=== PATIENT | female | born 1945 | race Caucasian/White ===

== ENCOUNTER → 2024-09-10 | Outpatient (CLI) | payer MEDICARE, SELFPAY ==
[2024-09-10 12:01] LABS: Basophils % (Auto) 1 % (0-2.5); Eosinophils # (Auto) 0.3 Thou/mm3 (0.0-0.5); Eosinophils % (Auto) 3 % (0-10); Hematocrit 38.8 % (36.0-46.0); Hemoglobin 12.8 g/dL (12.0-16.0); Immature Granulocytes % (Auto) 1 % (0-0); Immature Granulocytes Auto 0.06 Thou/mm3 (0.00-0.00); Lymphocytes # (Auto) 3.8 Thou/mm3 (1.0-4.8); Lymphocytes % (Auto) 48 % (10-50); Mean Corpuscular Hemoglobin 29.8 pg (25.0-35.0); Mean Corpuscular Volume 90 fL (80-100); Monocytes # (Auto) 0.8 Thou/mm3 (0.0-0.8); Monocytes % (Auto) 10 % (0-12); Neutrophils % (Auto) 38 % (37-80); Nucleated Red Blood Cell % 0 /100 WBC (0); Platelet Count 231 Thou/mm3 (140-440); RDW Standard Deviation 46.8 fL (36.4-46.3); White Blood Count 8.1 Thou/mm3 (3.6-11.0)
[2024-09-10 12:22] LABS: Alanine Aminotransferase 27 U/L (10-49); Albumin, Serum 4.5 gm/dL (3.4-4.8); Albumin/Globulin Ratio 1.8 (1.2-2.2); Alkaline Phosphatase 41 U/L (46-116); Anion Gap 7 (7-16); Aspartate Amino Transferase 28 U/L (0-34); BUN/Creatinine Ratio 15 Ratio (12-20); Bilirubin,Total 0.5 mg/dL (0.3-1.2); Blood Urea Nitrogen 16 mg/dL (9-23); Calcium 9.9 mg/dL (8.3-10.6); Calcium (Corrected) 9.9 mg/dL (8.5-10.1); Carbon Dioxide 27.3 mMol/L (20.0-31.0); Chloride 102 mMol/L (98-107); Creatinine (Component) 1.1 mg/dL (0.6-1.3); Globulin 2.5 gm/dL (2.3-3.5); Glucose 156 mg/dL (74-106); Osmolality,Calculated 276 (275-295); Potassium 4.1 mMol/L (3.4-5.1); Sodium 136 mMol/L (136-145); eGFR 51 See Note
[2024-09-26 03:06] LABS: Immunoglobulin A 92 mg/dL (70-320); Immunoglobulin G 695 mg/dL (600-1540)
[2024-09-26 07:10] LABS: Immunoglobulin M 997 mg/dL (50-300)
== END | disposition home or self-care (01) ==
LOC: SCTO 11:11
PROVIDERS: PCP Family Medicine; Referring Provider Internal Medicine Hematology & Oncology; Visit Provider Internal Medicine Hematology & Oncology
DX: D72.820 Lymphocytosis (symptomatic) (principal)
CPT/HCPCS: 36415; 80053; 82784; 85025

== ENCOUNTER → 2024-09-11 | Outpatient (CLI) | payer MEDICARE, SELFPAY ==
[2024-09-11 10:16] LABS: Collection Type, Urine Clean Catch
[2024-09-11 10:29] LABS: Basophils # (Auto) 0.1 Thou/mm3 (0.0-0.2); Basophils % (Auto) 1 % (0-2.5); Eosinophils # (Auto) 0.2 Thou/mm3 (0.0-0.5); Eosinophils % (Auto) 2 % (0-10); Hematocrit 38.6 % (36.0-46.0); Hemoglobin 12.9 g/dL (12.0-16.0); Immature Granulocytes % (Auto) 1 % (0-0); Immature Granulocytes Auto 0.05 Thou/mm3 (0.00-0.00); Lymphocytes # (Auto) 4.1 Thou/mm3 (1.0-4.8); Lymphocytes % (Auto) 51 % (10-50); Mean Corpuscular HGB Conc 33.4 g/dl (31.0-37.0); Mean Corpuscular Hemoglobin 29.7 pg (25.0-35.0); Mean Corpuscular Volume 89 fL (80-100); Monocytes # (Auto) 0.9 Thou/mm3 (0.0-0.8); Monocytes % (Auto) 12 % (0-12); Neutrophils # (Auto) 2.7 Thou/mm3 (1.8-7.7); Neutrophils % (Auto) 34 % (37-80); Nucleated Red Blood Cell % 0 /100 WBC (0); Platelet Count 237 Thou/mm3 (140-440); RDW Standard Deviation 45.9 fL (36.4-46.3); Red Blood Count 4.34 Miln/mm3 (4.00-5.20); White Blood Count 8.1 Thou/mm3 (3.6-11.0)
[2024-09-11 10:42] LABS: Glucose Estimated Average 163 mg/dL (80-131); Hemoglobin A1C 7.3 % Hgb (4.8-6.0)
[2024-09-11 10:46] LABS: Bacteria,Urine Rare; Bilirubin,Urine Negative (Negative); Blood,Urine Negative (Negative); Clarity,Urine Clear (Clear/Hazy); Color,Urine Yellow (Lt Yel-Yel); Glucose, Urine Negative (Negative); Hyaline Casts,Urine < 1 /hpf (0-1); Ketones,Urine Negative (Negative); Leukocyte Esterase,Urine Positive (Negative); Nitrite,Urine Negative (Negative); Protein,Urine 1+ (Neg - Trace); RBC,Urine 10 /hpf (0-3); Specific Gravity,Urine 1.027 (1.001-1.035); Squamous Epithelial Cell,Urine 1 /hpf (0-5); Urobilinogen,Urine Negative mg/dL (0.0-1.0); WBC,Urine 28 /hpf (0-5)
[2024-09-11 10:50] LABS: Alanine Aminotransferase 27 U/L (10-49); Albumin, Serum 4.5 gm/dL (3.4-4.8); Albumin/Globulin Ratio 1.7 (1.2-2.2); Alkaline Phosphatase 40 U/L (46-116); Anion Gap 6 (7-16); Aspartate Amino Transferase 28 U/L (0-34); BUN/Creatinine Ratio 12 Ratio (12-20); Bilirubin,Total 0.5 mg/dL (0.3-1.2); Blood Urea Nitrogen 14 mg/dL (9-23); Calcium 9.6 mg/dL (8.3-10.6); Calcium (Corrected) 9.6 mg/dL (8.5-10.1); Carbon Dioxide 27.8 mMol/L (20.0-31.0); Chloride 104 mMol/L (98-107); Cholesterol 121 mg/dL (132-200); Creatinine (Component) 1.2 mg/dL (0.6-1.3); Globulin 2.6 gm/dL (2.3-3.5); Glucose 185 mg/dL (74-106); HDL Cholesterol 61 mg/dL (40-60); LDL Cholesterol,Calculated 48 mg/dL (0-130); Osmolality,Calculated 281 (275-295); Sodium 138 mMol/L (136-145); Thyroid Stimulating Hormone 2.55 uIU/mL (0.55-4.78); Total Protein 7.1 gm/dL (5.7-8.2); Triglycerides 58 mg/dL (30-150); eGFR 46 See Note
[2024-09-11 10:52] LABS: Vitamin B12 331 pg/mL (211-911); Vitamin D 25 Hydroxy Total 48.1 ng/mL (7.3-40.2)
[2024-09-11 11:08] LABS: Culture Indicated,Urine Yes
== END | disposition home or self-care (01) ==
LOC: COPL 09:27
PROVIDERS: PCP Family Medicine; Referring Provider Physician Assistant; Visit Provider Physician Assistant
DX: E11.9 Type 2 diabetes mellitus without complications (principal); E55.9 Vitamin D deficiency, unspecified
CPT/HCPCS: 36415; 80053; 80061; 81001; 82306; 82607; 83036; 84443; 85025; 87086

== ENCOUNTER 2024-10-02 10:22 | Outpatient (RCR) | payer MEDICARE, SELFPAY | END 2024-10-23 23:59 | disposition home or self-care (01) | LOC: SCTC 10:22 | PROVIDERS: PCP Physician Assistant; Referring Provider Physician Assistant; Visit Provider Nurse Practitioner Family | DX: C88.00 Waldenstrom macroglobulinemia not having achieved remission (principal) | CPT/HCPCS: 99212; G0463 ==

== ENCOUNTER → 2024-10-03 | Outpatient (CLI) | payer MEDICARE, SELFPAY ==
--- NOTE | 2024-10-03 15:30 | XR_ITS ---
Examination: CT chest, without intravenous contrast. Sagittal and coronal 2-D reconstructions. Exam date and time: October 03, 2024 1548 hours Comparison January 04, 2024 INDICATIONS: History lymphocytosis diagnosis 6 months ago, bilateral pulmonary nodules on CT chest January 04, 2024 and October 05, 2023 CTDI:vol (mGy) 7.02 DLP: (mGycm) 256 Technique: Multiple 3.0 mm axial sections of the chest to been obtained. Bone and lung density settings are obtained. Sagittal and coronal 2-D reconstructions have been obtained. Low dose protocols were performed. One or more of the following dose reduction techniques were used; automated exposure control, adjustment of the mA and/or KV according to patient size, use of iterative reconstruction technique. Findings: No thoracic aortic aneurysm dilatation Pulmonary artery segments are not enlarged No paratracheal tracheobronchial or bronchopulmonary adenopathy Stable bilateral pulmonary nodules Minor atelectasis or scarring in the right middle lobe Fatty infiltration throughout the liver Significant hepatomegaly incompletely visualized AP dimension spleen 11 cm No pancreatic mass Mild bilateral renal parenchymal scar formation Significant osteopenia IMPRESSION: No mediastinal lymphadenopathy Stable subcentimeter bilateral pulmonary nodules Significant hepatomegaly incompletely visualized
== END | disposition home or self-care (01) ==
PROVIDERS: PCP Family Medicine; Referring Provider Internal Medicine Hematology & Oncology; Visit Provider Internal Medicine Hematology & Oncology
DX: R91.8 Other nonspecific abnormal finding of lung field (principal); R16.0 Hepatomegaly, not elsewhere classified
CPT/HCPCS: 71250

== ENCOUNTER → 2024-12-04 | Outpatient (CLI) | payer MEDICARE, SELFPAY ==
[2024-12-04 17:39] LABS: Basophils # (Auto) 0.1 Thou/mm3 (0.0-0.2); Basophils % (Auto) 1 % (0-2.5); Eosinophils # (Auto) 0.2 Thou/mm3 (0.0-0.5); Eosinophils % (Auto) 2 % (0-10); Hematocrit 38.8 % (36.0-46.0); Hemoglobin 12.8 g/dL (12.0-16.0); Immature Granulocytes % (Auto) 0 % (0-0); Immature Granulocytes Auto 0.04 Thou/mm3 (0.00-0.00); Lymphocytes # (Auto) 4.3 Thou/mm3 (1.0-4.8); Lymphocytes % (Auto) 44 % (10-50); Mean Corpuscular Hemoglobin 29.2 pg (25.0-35.0); Mean Corpuscular Volume 89 fL (80-100); Monocytes # (Auto) 1.1 Thou/mm3 (0.0-0.8); Monocytes % (Auto) 11 % (0-12); Neutrophils # (Auto) 4.1 Thou/mm3 (1.8-7.7); Neutrophils % (Auto) 42 % (37-80); Nucleated Red Blood Cell % 0 /100 WBC (0); Platelet Count 225 Thou/mm3 (140-440); RDW Standard Deviation 45.1 fL (36.4-46.3); Red Blood Count 4.38 Miln/mm3 (4.00-5.20); White Blood Count 9.8 Thou/mm3 (3.6-11.0)
[2024-12-04 17:58] LABS: Alanine Aminotransferase 31 U/L (10-49); Albumin, Serum 4.4 gm/dL (3.4-4.8); Albumin/Globulin Ratio 1.6 (1.2-2.2); Alkaline Phosphatase 52 U/L (46-116); Anion Gap 6 (7-16); Aspartate Amino Transferase 28 U/L (0-34); BUN/Creatinine Ratio 13 Ratio (12-20); Bilirubin,Total 0.3 mg/dL (0.3-1.2); Blood Urea Nitrogen 15 mg/dL (9-23); Calcium 9.7 mg/dL (8.3-10.6); Calcium (Corrected) 9.7 mg/dL (8.5-10.1); Carbon Dioxide 26.7 mMol/L (20.0-31.0); Chloride 107 mMol/L (98-107); Creatinine (Component) 1.2 mg/dL (0.6-1.3); Globulin 2.7 gm/dL (2.3-3.5); Glucose 129 mg/dL (74-106); Osmolality,Calculated 282 (275-295); Potassium 4.1 mMol/L (3.4-5.1); Sodium 140 mMol/L (136-145); Total Protein 7.1 gm/dL (5.7-8.2); eGFR 46 See Note
[2024-12-10 19:48] LABS: Abnormal protein band 1 0.6 g/dL (NONE DETECTED); Albumin 4.1 g/dL (3.8-4.8); Alpha-1-Globulin 0.3 g/dL (0.2-0.3); Alpha-2-Globulin 0.8 g/dL (0.5-0.9); Beta-1-Globulin 0.5 g/dL (0.4-0.6); Beta-2-globulin 0.3 g/dL (0.2-0.5); Gamma Globulin 1.2 g/dL (0.8-1.7); Kappa Light Chain, Free 388.5 mg/L (3.3-19.4); Lambda Light Chain, Free 12.3 mg/L (5.7-26.3)
[2024-12-11 07:06] LABS: Kappa/Lambda, Free Ratio 31.59 (0.26-1.65); Protein, total, serum 7.2 g/dL (6.1-8.1)
== END | disposition home or self-care (01) ==
LOC: SCTO 16:15
PROVIDERS: PCP Family Medicine; Referring Provider Internal Medicine Hematology & Oncology; Visit Provider Internal Medicine Hematology & Oncology
DX: D72.820 Lymphocytosis (symptomatic) (principal)
CPT/HCPCS: 36415; 80053; 82570; 83521; 84155; 84156; 84165; 84166; 85025; 86334

== ENCOUNTER → 2024-12-06 | Outpatient (CLI) | payer MEDICARE, SELFPAY ==
[2024-12-06 12:10] LABS: Protein Total, Urine Volume 1240 mL/24hr (600-1800)
[2024-12-06 12:26] LABS: Protein Total, 24 hr Urine 74 mg/24hr (<149); Protein Total, Urine < 6 mg/dL (1-14)
== END | disposition home or self-care (01) ==
LOC: SLDO 11:05
PROVIDERS: Referring Provider Internal Medicine Hematology & Oncology; Visit Provider Internal Medicine Hematology & Oncology
DX: D72.820 Lymphocytosis (symptomatic) (principal)
CPT/HCPCS: 84156

== ENCOUNTER 2024-12-17 10:28 | Outpatient (RCR) | payer MEDICARE, SELFPAY ==
--- NOTE | 2024-12-23 13:44 | CTCFLWUP_ITS ---
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 Scheduled for CT chest tomorrow. Patient denies any concerns or complaints. Patient remains asymptomatic. ONCOLOGY HISTORY: DIAGNOSIS: Santiago Isa's macroglobulinemia, asymptomatic. DATE OF DIAGNOSIS: STAGE/TNM: Asymptomatic TREATMENT HISTORY: Care?Plan Start?Date Cycle Day Intent HISTORY OF PRESENT ILLNESS: Cydney Clay is a 79-year-old ENG speaking female with history of mild COPD, actinic keratosis is referred to hematology clinic for lymphocytosis. 12/05/2018: WBC 5.9, absolute lymphocyte count 2.6, hemoglobin 13.3, MCV 97, platelets 198,000. 04/24/2020: WBC 5.7, absolute lymphocyte count 2.7, hemoglobin 13.5, MCV 96, platelets 190,000. 07/22/2021: WBC 6.6, absolute lymphocyte count 3.8, hemoglobin 13.3, MCV 95, platelets 186,000. 04/14/2022: WBC 12.4, absolute lymphocyte count 8.6, hemoglobin 13.6, MCV 94, platelets 264,000. 04/14/2022: Peripheral smear reviewed by pathologist? 05/12/2022: Abdominal ultrasound? 07/30/2022: Flow cytometry of the peripheral blood? 09/14/2022: Of the abdomen and pelvis with IV contrast in [place] which showed small enlarged gastrohepatic of the chest abdomen and pelvis with IV contrast? 09/23/2022: 11/08/2022: IgM 761 (50?300) [place] light chains 193.3 (3.3?19.4), kappa?lambda free light chain ratio 11.24. WBC 9.0, absolute lymphocyte count 5.2, hemoglobin 13.4, MCV 90, platelets 240,000. 12/08/2022 IgM 738, kappa free light chain 213.0, kappa/lambda free light chain ratio 12.60, WBC 8.3, absolute lymphocyte count 4.5, hemoglobin 12.3, platelets 267,000. 09/20/2023: Hemoglobin 12.2, MCV 92, WBC 6.5, ANC 2.6, platelets 178,000, creatinine 1.0, calcium 9.6, globulin is 2.7. 01/03/2024: Ms. Clay had CT scan of the abdomen and pelvis with contrast done to evaluate the cause for hematuria for which she is being followed by urologist in [place] 02/07/2024: PET/CT scan OTHER MEDICAL HISTORY/CONDITIONS: allergies???heart?murmur?copd???covid hystrectomy opphrectomy catract/retina surg 2007 History of mild COPD. History of actinic keratosis FAMILY HISTORY: Father:?colon?ca SOCIAL HISTORY: Occupational?History:?retired Education?Level:?Attended College, did not graduate Marital?Status:? Tobacco?Pack?per?Day:?0 Tobacco?Use?Years:?1 Tobacco?Use:?quit?50?yrs ETOH?Use:?no Drug?Note:?denies Social?History?Note:?lived?alone HEALTH CLINICIAN HISTORY: Menarche?-?Age:?16 Menopause:?1979 :?2 Live?Births:?2 Age?1st?:?21 MEDICATIONS: 1. albuterol sulfate - 90 mcg/actuation As needed 2. caprylic/capric triglyceride - As directed 3. Estraderm - Medications Last Reconciled by Patsy Mann MD on 12/17/2024 ALLERGIES: Doxycycline calcium; amoxicillin-pot clavulanate REVIEW OF SYSTEMS: A complete 14-point review of systems was performed and is negative except as noted in interval history. PHYSICAL EXAMINATION: VITAL SIGNS: Temperature?98.2, B/P?143/77, Oxygen?Saturation?96% Weight?134?lbs PAIN: 0 - No pain ECOG Performance Status: 0 - Asymptomatic and fully active GENERAL APPEARANCE: Appears well, in no apparent distress, appropriately interactive. HEENT: Normocephalic, normal conjunctiva, normal hearing, lips without lesions, neck normal range of motion. CARDIOVASCULAR: Normal heart sounds PULMONARY: Normal respiratory effort, no respiratory distress or use of accessory muscles, speaking in full sentences, no tachypnea. EXTREMITIES: No cyanosis. SKIN: Normal skin appearance. NEUROLOGIC: Alert and oriented x4. PSHYCHIATRIC: Appropriate affect, mood normal, behavior normal, intact thought and speech. LABORATORY DATA: I have personally reviewed and interpreted each of the patient?s relevant lab tests, abnormal findings are below: Date 12/21/24 ??WHITE?BLOOD?COUNT?(Thou/mm3) 7.5 ??RED?BLOOD?COUNT?(Miln/mm3) 4.18 ??HEMOGLOBIN?(gm/dl) 12.0 ??HEMATOCRIT?(%) 37.4 ??PLATELET?COUNT?(Thou/mm3) 188 ??NEUTROPHILS?%,?AUTO?(%) 37 ??LYMPH?%,?AUTO?(%) 53?H ??NEUTROPHILS,?AUTO?(Thou/mm3) 2.8 ASSESSMENT/PLAN: 1. 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 No lymphadenopathy or significant splenomegaly. No anemia or thrombocytopenia Small non-hypermetabolic retrocaval lymph node as documented above. Patient is asymptomatic. CT of chest scheduled 10/03/2024 showed no mediastinal lymphadenopathy. Stable subcentimeter bilateral pulmonary nodules. Significant hepatomegaly incompletely visualized Continue following up with PCP for chronic illness. Patient have not completed any labs CBC CMP quantitative immunoglobulin levels SPEP serum amino pheresis viscosity RETURN TO CLINIC: 2 weeks for review of labs with the telephone visit and 6 months for routine visit BILLING AND COMPLIANCE: I reviewed external records from providers outside my specialty as summarized above. I spent a total of 50 minutes on this patient?s care on the day of their visit excluding time spent related to any billed procedures. This time includes time spent with the patient as well as time spent documenting in the medical record, reviewing patients records and tests, obtaining history, placing orders, communicating with other healthcare professionals, counseling the patient, family or caregiver, and/or care coordination for the diagnoses above. Electronically Signed by: Pelon Mittal MD T: 1:42 PM CC: PCP: Yovanny Fleming Referring: Yovanny Fleming This document was completed utilizing speech recognition software. Grammatical errors, random word insertions, pronoun errors, and incomplete sentences are an occasional consequence of this system due to software limitations, ambient noise, and hardware issues. Any formal questions or concerns about the content, text or information contained within the body of this dictation should be directly addressed to the provider for clarification.
== END 2024-12-21 23:59 | disposition home or self-care (01) ==
LOC: SCTC 10:28
PROVIDERS: PCP Family Medicine; Referring Provider Family Medicine; Visit Provider Nurse Practitioner Family
DX: C88.00 Waldenstrom macroglobulinemia not having achieved remission (principal); R91.8 Other nonspecific abnormal finding of lung field; R16.0 Hepatomegaly, not elsewhere classified
CPT/HCPCS: 99212; G0463

== ENCOUNTER → 2024-12-21 | Outpatient (CLI) | payer MEDICARE, SELFPAY ==
[2024-12-21 12:26] LABS: Misc Send Out* See Sep Rpt
[2024-12-21 13:44] LABS: Basophils % (Auto) 0 % (0-2.5); Eosinophils # (Auto) 0.1 Thou/mm3 (0.0-0.5); Eosinophils % (Auto) 2 % (0-10); Hematocrit 37.4 % (36.0-46.0); Immature Granulocytes % (Auto) 1 % (0-0); Immature Granulocytes Auto 0.04 Thou/mm3 (0.00-0.00); Lymphocytes % (Auto) 53 % (10-50); Mean Corpuscular HGB Conc 32.1 g/dl (31.0-37.0); Mean Corpuscular Hemoglobin 28.7 pg (25.0-35.0); Mean Corpuscular Volume 90 fL (80-100); Monocytes # (Auto) 0.6 Thou/mm3 (0.0-0.8); Monocytes % (Auto) 7 % (0-12); Neutrophils # (Auto) 2.8 Thou/mm3 (1.8-7.7); Neutrophils % (Auto) 37 % (37-80); Nucleated Red Blood Cell % 0 /100 WBC (0); Platelet Count 188 Thou/mm3 (140-440); RDW Standard Deviation 46.8 fL (36.4-46.3); Red Blood Count 4.18 Miln/mm3 (4.00-5.20); White Blood Count 7.5 Thou/mm3 (3.6-11.0)
[2024-12-21 13:52] LABS: Alanine Aminotransferase 32 U/L (10-49); Albumin, Serum 4.5 gm/dL (3.4-4.8); Albumin/Globulin Ratio 1.6 (1.2-2.2); Alkaline Phosphatase 45 U/L (46-116); Anion Gap 8 (7-16); Aspartate Amino Transferase 35 U/L (0-34); BUN/Creatinine Ratio 8 Ratio (12-20); Bilirubin,Total 0.4 mg/dL (0.3-1.2); Blood Urea Nitrogen 8 mg/dL (9-23); Calcium 9.4 mg/dL (8.3-10.6); Calcium (Corrected) 9.4 mg/dL (8.5-10.1); Carbon Dioxide 27.4 mMol/L (20.0-31.0); Chloride 105 mMol/L (98-107); Globulin 2.8 gm/dL (2.3-3.5); Glucose 151 mg/dL (74-106); Osmolality,Calculated 280 (275-295); Sodium 140 mMol/L (136-145); Total Protein 7.3 gm/dL (5.7-8.2); eGFR 58 See Note
[2024-12-28 05:05] LABS: Abnormal protein band 1 0.4 g/dL (NONE DETECTED); Alpha-1-Globulin 0.4 g/dL (0.2-0.3); Alpha-2-Globulin 0.8 g/dL (0.5-0.9); Beta-1-Globulin 0.5 g/dL (0.4-0.6); Beta-2-globulin 0.3 g/dL (0.2-0.5); Gamma Globulin 1.1 g/dL (0.8-1.7); Immunoglobulin A 98 mg/dL (70-320); Immunoglobulin G 726 mg/dL (600-1540); Kappa Light Chain, Free 423.9 mg/L (3.3-19.4); Lambda Light Chain, Free 14.6 mg/L (5.7-26.3)
[2024-12-28 06:33] LABS: Beta 2 Microglobulin 3.69 mg/L (< OR = 2.51); Immunoglobulin M 952 mg/dL (50-300); Kappa/Lambda, Free Ratio 29.03 (0.26-1.65)
== END | disposition home or self-care (01) ==
LOC: SCTO 12:05
PROVIDERS: PCP Family Medicine; Referring Provider Nurse Practitioner Family; Visit Provider Nurse Practitioner Family
DX: D72.820 Lymphocytosis (symptomatic) (principal)
CPT/HCPCS: 36415; 80053; 82232; 82784; 83521; 84155; 84165; 85025; 86334

== ENCOUNTER 2025-01-01 14:06 | Outpatient (RCR) | payer MEDICARE, SELFPAY | END 2025-01-21 23:59 | disposition home or self-care (01) | LOC: SCTC 14:06 | PROVIDERS: PCP Family Medicine; Referring Provider Family Medicine; Visit Provider Nurse Practitioner Family | DX: C88.00 Waldenstrom macroglobulinemia not having achieved remission (principal); R91.8 Other nonspecific abnormal finding of lung field | CPT/HCPCS: 99212; G0463 ==

== ENCOUNTER → 2025-01-25 | Outpatient (CLI) | payer MEDICARE, SELFPAY ==
[2025-01-25 14:20] LABS: Basophils # (Auto) 0.1 Thou/mm3 (0.0-0.2); Basophils % (Auto) 1 % (0-2.5); Eosinophils # (Auto) 0.1 Thou/mm3 (0.0-0.5); Eosinophils % (Auto) 1 % (0-10); Hematocrit 38.6 % (36.0-46.0); Hemoglobin 12.8 g/dL (12.0-16.0); Immature Granulocytes % (Auto) 0 % (0-0); Immature Granulocytes Auto 0.04 Thou/mm3 (0.00-0.00); Lymphocytes # (Auto) 5.5 Thou/mm3 (1.0-4.8); Lymphocytes % (Auto) 57 % (10-50); Mean Corpuscular HGB Conc 33.2 g/dl (31.0-37.0); Mean Corpuscular Hemoglobin 29.7 pg (25.0-35.0); Mean Corpuscular Volume 90 fL (80-100); Monocytes % (Auto) 10 % (0-12); Neutrophils % (Auto) 31 % (37-80); Nucleated Red Blood Cell % 0 /100 WBC (0); Platelet Count 224 Thou/mm3 (140-440); RDW Standard Deviation 48.9 fL (36.4-46.3); Red Blood Count 4.31 Miln/mm3 (4.00-5.20); White Blood Count 9.7 Thou/mm3 (3.6-11.0)
[2025-01-25 14:34] LABS: Glucose Estimated Average 169 mg/dL (80-131); Hemoglobin A1C 7.5 % Hgb (4.8-6.0)
[2025-01-25 14:35] LABS: Alanine Aminotransferase 29 U/L (10-49); Albumin, Serum 4.5 gm/dL (3.4-4.8); Albumin/Globulin Ratio 1.5 (1.2-2.2); Alkaline Phosphatase 48 U/L (46-116); Anion Gap 10 (7-16); Aspartate Amino Transferase 28 U/L (0-34); BUN/Creatinine Ratio 11 Ratio (12-20); Bilirubin,Total 0.3 mg/dL (0.3-1.2); Blood Urea Nitrogen 12 mg/dL (9-23); Calcium 10.1 mg/dL (8.3-10.6); Calcium (Corrected) 10.1 mg/dL (8.5-10.1); Chloride 103 mMol/L (98-107); Creatinine (Component) 1.1 mg/dL (0.6-1.3); Glucose 129 mg/dL (74-106); Osmolality,Calculated 281 (275-295); Potassium 4.6 mMol/L (3.4-5.1); Sodium 140 mMol/L (136-145); Total Protein 7.5 gm/dL (5.7-8.2); eGFR 51 See Note
[2025-01-25 15:35] LABS: Path Review Blood Smear Sent to Pathologist
== END | disposition home or self-care (01) ==
LOC: COPL 13:16
PROVIDERS: PCP Family Medicine; Referring Provider Nurse Practitioner Family; Visit Provider Physician Assistant
DX: D72.820 Lymphocytosis (symptomatic) (principal); N18.30 Chronic kidney disease, stage 3 unspecified; E11.65 Type 2 diabetes mellitus with hyperglycemia; E11.22 Type 2 diabetes mellitus with diabetic chronic kidney disease
CPT/HCPCS: 36415; 80053; 83036; 85025

== ENCOUNTER 2025-01-29 10:47 | Outpatient (RCR) | payer MEDICARE, SELFPAY | END 2025-02-20 23:59 | disposition home or self-care (01) | LOC: SCTC 10:47 | PROVIDERS: PCP Family Medicine; Referring Provider Family Medicine; Visit Provider Nurse Practitioner Family | DX: C88.00 Waldenstrom macroglobulinemia not having achieved remission (principal); R91.8 Other nonspecific abnormal finding of lung field; R16.0 Hepatomegaly, not elsewhere classified | CPT/HCPCS: 99212; G0463 ==

== ENCOUNTER → 2025-05-20 | Outpatient (CLI) | payer MEDICARE, SELFPAY ==
[2025-05-20 16:43] LABS: Alanine Aminotransferase 32 U/L (10-49); Albumin, Serum 4.0 gm/dL (3.4-4.8); Albumin/Globulin Ratio 1.6 (1.2-2.2); Alkaline Phosphatase 48 U/L (46-116); Anion Gap 11 (7-16); Aspartate Amino Transferase 38 U/L (0-34); BUN/Creatinine Ratio 12 Ratio (12-20); Bilirubin,Total 0.3 mg/dL (0.3-1.2); Blood Urea Nitrogen 14 mg/dL (9-23); Calcium 9.1 mg/dL (8.3-10.6); Calcium (Corrected) 9.1 mg/dL (8.5-10.1); Carbon Dioxide 29.1 mMol/L (20.0-31.0); Chloride 102 mMol/L (98-107); Creatinine (Component) 1.2 mg/dL (0.6-1.3); Globulin 2.5 gm/dL (2.3-3.5); Glucose 215 mg/dL (74-106); Osmolality,Calculated 289 (275-295); Potassium 4.3 mMol/L (3.4-5.1); Sodium 142 mMol/L (136-145); Total Protein 6.5 gm/dL (5.7-8.2); eGFR 46 See Note
[2025-05-20 16:55] LABS: Glucose Estimated Average 180 mg/dL (80-131); Hemoglobin A1C 7.9 % Hgb (4.8-6.0)
== END | disposition home or self-care (01) ==
LOC: COPL 15:10
PROVIDERS: PCP Family Medicine; Referring Provider Physician Assistant; Visit Provider Physician Assistant
DX: E11.65 Type 2 diabetes mellitus with hyperglycemia (principal)
CPT/HCPCS: 36415; 80053; 83036

== ENCOUNTER → 2025-06-03 | Outpatient (CLI) | payer MEDICARE, SELFPAY ==
[2025-06-03 13:40] LABS: Misc Send Out* See Sep Rpt
[2025-06-03 15:02] LABS: Basophils # (Auto) 0.0 Thou/mm3 (0.0-0.2); Basophils % (Auto) 0 % (0-2.5); Eosinophils # (Auto) 0.1 Thou/mm3 (0.0-0.5); Eosinophils % (Auto) 1 % (0-10); Hematocrit 36.7 % (36.0-46.0); Hemoglobin 11.9 g/dL (12.0-16.0); Immature Granulocytes Auto 0.05 Thou/mm3 (0.00-0.00); Lymphocytes # (Auto) 6.2 Thou/mm3 (1.0-4.8); Lymphocytes % (Auto) 59 % (10-50); Mean Corpuscular HGB Conc 32.4 g/dl (31.0-37.0); Mean Corpuscular Hemoglobin 29.3 pg (25.0-35.0); Mean Corpuscular Volume 90 fL (80-100); Monocytes # (Auto) 0.7 Thou/mm3 (0.0-0.8); Monocytes % (Auto) 6 % (0-12); Neutrophils # (Auto) 3.4 Thou/mm3 (1.8-7.7); Neutrophils % (Auto) 33 % (37-80); Nucleated Red Blood Cell # 0.00 Thou/mm3 (0.00-0.00); Nucleated Red Blood Cell % 0 /100 WBC (0); Platelet Count 199 Thou/mm3 (140-440); RDW Standard Deviation 48.1 fL (36.4-46.3); Red Blood Count 4.06 Miln/mm3 (4.00-5.20); White Blood Count 10.4 Thou/mm3 (3.6-11.0)
[2025-06-03 15:10] LABS: Alanine Aminotransferase 25 U/L (10-49); Albumin, Serum 4.3 gm/dL (3.4-4.8); Albumin/Globulin Ratio 1.7 (1.2-2.2); Alkaline Phosphatase 45 U/L (46-116); Anion Gap 9 (7-16); Aspartate Amino Transferase 25 U/L (0-34); BUN/Creatinine Ratio 8 Ratio (12-20); Bilirubin,Total 0.4 mg/dL (0.3-1.2); Blood Urea Nitrogen 9 mg/dL (9-23); Calcium 9.5 mg/dL (8.3-10.6); Calcium (Corrected) 9.5 mg/dL (8.5-10.1); Carbon Dioxide 27.8 mMol/L (20.0-31.0); Chloride 102 mMol/L (98-107); Creatinine (Component) 1.1 mg/dL (0.6-1.3); Globulin 2.6 gm/dL (2.3-3.5); Glucose 148 mg/dL (74-106); Osmolality,Calculated 279 (275-295); Potassium 4.4 mMol/L (3.4-5.1); Sodium 139 mMol/L (136-145); Total Protein 6.9 gm/dL (5.7-8.2); eGFR 51 See Note
[2025-06-08 19:48] LABS: Abnormal protein band 1 0.6 g/dL (NONE DETECTED); Albumin 3.9 g/dL (3.8-4.8); Alpha-1-Globulin 0.4 g/dL (0.2-0.3); Alpha-2-Globulin 0.8 g/dL (0.5-0.9); Beta-1-Globulin 0.5 g/dL (0.4-0.6); Beta-2-globulin 0.3 g/dL (0.2-0.5); Gamma Globulin 1.2 g/dL (0.8-1.7); Immunoglobulin A 78 mg/dL (70-320); Immunoglobulin G 650 mg/dL (600-1540); Kappa Light Chain, Free 457.0 mg/L (3.3-19.4); Lambda Light Chain, Free 10.8 mg/L (5.7-26.3)
[2025-06-10 06:57] LABS: Beta 2 Microglobulin 3.56 mg/L (< OR = 2.51); Immunoglobulin M 1206 mg/dL (50-300); Kappa/Lambda, Free Ratio 42.31 (0.26-1.65); Protein, total, serum 7.0 g/dL (6.1-8.1)
== END | disposition home or self-care (01) ==
LOC: SCTO 13:15
PROVIDERS: PCP Family Medicine; Referring Provider Nurse Practitioner Family; Visit Provider Nurse Practitioner Family
DX: D72.820 Lymphocytosis (symptomatic) (principal)
CPT/HCPCS: 36415; 80053; 82232; 82784; 83521; 84155; 84165; 85025; 85810; 86334

== ENCOUNTER 2025-06-17 10:20 | Outpatient (RCR) | payer MEDICARE, SELFPAY | END 2025-06-23 23:59 | disposition home or self-care (01) | LOC: SCTC 10:20 | PROVIDERS: PCP Family Medicine; Referring Provider Nurse Practitioner Family; Visit Provider Nurse Practitioner Family | DX: C88.00 Waldenstrom macroglobulinemia not having achieved remission (principal); R91.8 Other nonspecific abnormal finding of lung field | CPT/HCPCS: 99212; G0463 ==

== ENCOUNTER → 2025-08-19 | Outpatient (CLI) | payer MEDICARE, SELFPAY ==
[2025-08-19 13:01] LABS: Glucose Estimated Average 157 mg/dL (80-131); Hemoglobin A1C 7.1 % Hgb (4.8-6.0)
[2025-08-19 13:02] LABS: Alanine Aminotransferase 19 U/L (10-49); Albumin, Serum 4.8 gm/dL (3.4-4.8); Albumin/Globulin Ratio 1.6 (1.2-2.2); Alkaline Phosphatase 48 U/L (46-116); Anion Gap 10 (7-16); Aspartate Amino Transferase 25 U/L (0-34); BUN/Creatinine Ratio 11 Ratio (12-20); Bilirubin,Total 0.4 mg/dL (0.3-1.2); Blood Urea Nitrogen 11 mg/dL (9-23); Calcium 9.9 mg/dL (8.3-10.6); Calcium (Corrected) 9.9 mg/dL (8.5-10.1); Carbon Dioxide 26.6 mMol/L (20.0-31.0); Chloride 101 mMol/L (98-107); Creatinine (Component) 1.0 mg/dL (0.6-1.3); Globulin 3.0 gm/dL (2.3-3.5); Glucose 127 mg/dL (74-106); Osmolality,Calculated 277 (275-295); Potassium 4.3 mMol/L (3.4-5.1); Sodium 138 mMol/L (136-145); Total Protein 7.8 gm/dL (5.7-8.2); eGFR 57 See Note
== END | disposition home or self-care (01) ==
LOC: COPL 11:47
PROVIDERS: PCP Physician Assistant; Referring Provider Physician Assistant; Visit Provider Physician Assistant
DX: E11.65 Type 2 diabetes mellitus with hyperglycemia (principal)
CPT/HCPCS: 36415; 80053; 83036

== ENCOUNTER → 2025-10-11 | Outpatient (CLI) | payer MEDICARE, SELFPAY ==
[2025-10-11 10:28] LABS: Basophils # (Auto) 0.0 Thou/mm3 (0.0-0.2); Basophils % (Auto) 0 % (0-2.5); Eosinophils # (Auto) 0.1 Thou/mm3 (0.0-0.5); Eosinophils % (Auto) 1 % (0-10); Hematocrit 33.5 % (36.0-46.0); Hemoglobin 10.7 g/dL (12.0-16.0); Immature Granulocytes Auto 0.04 Thou/mm3 (0.00-0.00); Lymphocytes # (Auto) 6.9 Thou/mm3 (1.0-4.8); Lymphocytes % (Auto) 59 % (10-50); Mean Corpuscular HGB Conc 31.9 g/dl (31.0-37.0); Mean Corpuscular Hemoglobin 27.1 pg (25.0-35.0); Mean Corpuscular Volume 85 fL (80-100); Monocytes # (Auto) 2.1 Thou/mm3 (0.0-0.8); Monocytes % (Auto) 18 % (0-12); Neutrophils # (Auto) 2.4 Thou/mm3 (1.8-7.7); Neutrophils % (Auto) 21 % (37-80); Nucleated Red Blood Cell # 0.00 Thou/mm3 (0.00-0.00); Nucleated Red Blood Cell % 0 /100 WBC (0); Platelet Count 219 Thou/mm3 (140-440); RDW Standard Deviation 45.1 fL (36.4-46.3); Red Blood Count 3.95 Miln/mm3 (4.00-5.20); White Blood Count 11.6 Thou/mm3 (3.6-11.0)
[2025-10-11 10:54] LABS: Alanine Aminotransferase 13 U/L (10-49); Albumin, Serum 4.3 gm/dL (3.4-4.8); Albumin/Globulin Ratio 1.2 (1.2-2.2); Alkaline Phosphatase 46 U/L (46-116); Anion Gap 9 (7-16); Aspartate Amino Transferase 19 U/L (0-34); BUN/Creatinine Ratio 10 Ratio (12-20); Bilirubin,Total 0.3 mg/dL (0.3-1.2); Blood Urea Nitrogen 10 mg/dL (9-23); Calcium 9.2 mg/dL (8.3-10.6); Calcium (Corrected) 9.2 mg/dL (8.5-10.1); Carbon Dioxide 27.0 mMol/L (20.0-31.0); Chloride 101 mMol/L (98-107); Creatinine (Component) 1.0 mg/dL (0.6-1.3); Globulin 3.5 gm/dL (2.3-3.5); Glucose 119 mg/dL (74-106); Osmolality,Calculated 273 (275-295); Potassium 4.3 mMol/L (3.4-5.1); Sodium 137 mMol/L (136-145); Total Protein 7.8 gm/dL (5.7-8.2); eGFR 57 See Note
== END | disposition home or self-care (01) ==
LOC: SCTO 09:59
PROVIDERS: PCP Family Medicine; Referring Provider Nurse Practitioner Family; Visit Provider Nurse Practitioner Family
DX: D72.820 Lymphocytosis (symptomatic) (principal)
CPT/HCPCS: 36415; 80053; 85025

== ENCOUNTER → 2025-10-15 | Outpatient (CLI) | payer MEDICARE, SELFPAY ==
--- NOTE | 2025-10-15 15:00 | XR_ITS ---
Examination: CT chest with intravenous contrast CT abdomen with intravenous contrast CT pelvis with intravenous contrast 2-D coronal and sagittal reconstructions Time of exam: October 15, 2025, 1538 hours, comparison CT chest October 03, 2024 INDICATIONS: Diagnosis Waldenstrom's macroglobulinemia, history pulmonary nodules CTDI: vol (mGy) : 15.2 DLP: (mGycm): 530 Technique: Multiple axial images of the chest, abdomen and pelvis with intravenous contrast, 3.0 mm slice thickness. Images obtained post intravenous injection Isovue 370 60 cc. 2-D sagittal and coronal reconstructions. Low dose protocols were performed. One or more of the following dose reduction techniques were used; automated exposure control, adjustment of the mA and/or KV according to patient size, use of iterative reconstruction technique. Findings: No thoracic aortic aneurysm dilatation or dissection Pulmonary artery segments are not enlarged. No pulmonary artery emboli on this non CTA study No mediastinal lymphadenopathy Stable bilateral subcentimeter pulmonary nodules No new pulmonary nodules No pneumonia or pulmonary edema Minor scarring in both lungs No axillary lymphadenopathy Fatty infiltration throughout the liver Splenomegaly 13 cm No pancreatic mass No gallstones No pathologic abdominal or pelvic lymphadenopathy No bowel obstruction Mild thickening urinary bladder wall Advanced degenerative disc disease L3-L4 IMPRESSION: No mediastinal lymphadenopathy Stable subcentimeter pulmonary nodules compared with October 03, 2024 No pneumonia or pulmonary edema Splenomegaly No abdominal or pelvic lymphadenopathy
== END | disposition home or self-care (01) ==
PROVIDERS: PCP Family Medicine; Referring Provider Internal Medicine Hematology; Visit Provider Internal Medicine Hematology
DX: R91.8 Other nonspecific abnormal finding of lung field (principal); R16.1 Splenomegaly, not elsewhere classified
CPT/HCPCS: 71260; 74177; A4649; Q9967